=== PATIENT | male | born 1970 | race Asian ===

== ENCOUNTER 2019-11-13 00:07 | Emergency (ER) | payer OTHER ==
[~2019-11-13] VITALS: Ht 177.8 cm; Wt 81.6 kg
[2019-11-13 00:19] VITALS: BP 127/72
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
[2019-11-13] MEDS ORDERED: IBUPROFEN 600 MG TABLET PO ONE ×2 (00:30→00:39)
--- NOTE | 2019-11-13 01:20 | NUR ---
CALLED [employer] TO FILE A REPORT.
--- NOTE | 2019-11-13 01:35 | NUR ---
Patient given written and verbal discharge instructions. Patient verbalizes understanding of instructions. Patient is ambulatory with steady gait. Refuses offer of long-term placement. Patient given list of available shelters in surrounding area.
== END 2019-11-13 01:36 | disposition home or self-care (01) ==
LOC: ER 00:09
DX: S80.12XA Contusion of left lower leg, initial encounter (principal); S80.11XA Contusion of right lower leg, initial encounter; I10 Essential (primary) hypertension; Z59.0 Homelessness; Y08.89XA Assault by other specified means, initial encounter; Y93.89 Activity, other specified; Y92.89 Other specified places as the place of occurrence of the external cause; Y99.8 Other external cause status
CPT/HCPCS: 73590-TC